=== PATIENT | male | born 1965 | race African-American/Black ===

== ENCOUNTER 2023-11-14 00:16 | Emergency (ER) | payer SELFPAY ==
[~2023-11-14] VITALS: Ht 185.4 cm; Wt 90.0 kg
[2023-11-14 00:29] VITALS: BP 124/70; PULSE 88; RESP 18; TEMP 98.7; O2SAT 97
== END 2023-11-14 04:02 | disposition left against medical advice (07) ==
LOC: ER 00:16
DX: R05.9 Cough, unspecified (principal); Z53.21 Procedure and treatment not carried out due to patient leaving prior to being seen by health care provider
CPT/HCPCS: 99281